=== PATIENT | female | born 1950 | race Caucasian/White ===

== ENCOUNTER 2025-08-28 09:01 | Outpatient (REF) | payer MEDICARE, SELFPAY ==
--- NOTE | ~2025-08-28 | XR_ITS ---
EXAMINATION: XR CHEST CLINICAL INFORMATION: R05.9 - Cough, unspecified COMPARISON: None available. TECHNIQUE: 2 views of the chest were obtained. FINDINGS: Rotated positioning. Cardiac and mediastinal silhouette is within normal limits. Low lung volumes. Hazy and streaky opacities in the right mid and lower lung. Hazy opacity in the left lung base. No significant effusion. No pneumothorax is seen. Thoracolumbar spondylosis XR/XR chest 2V IMPRESSION: Hazy and streaky opacities in the right mid and lower lung, and in the left lung base. This could reflect inflammatory/infectious process. Electronically signed by: Sukhdev Randle MD 08/28/2025 10:38 AM KARIME
[2025-08-28 11:00] LABS: Resp Syncy Virus RNA Qual PCR NEGATIVE (Negative); SARS COV2 PCR INHOUSE NEGATIVE (Negative)
== END 2025-08-28 09:02 | disposition home or self-care (01) ==
LOC: HO.HMGCX 09:01
PROVIDERS: PCP Internal Medicine; Visit Provider Physician Assistant Medical
DX: R05.1 Acute cough (principal); R09.89 Other specified symptoms and signs involving the circulatory and respiratory systems
CPT/HCPCS: 71046; 87637; 99202

== ENCOUNTER 2025-08-28 09:01 | Outpatient (AMB) | payer MEDICARE, SELFPAY ==
--- NOTE | 2025-08-28 09:06 | AM.OFFWIN_ITS ---
Intake Vital Signs 08/28/25 09:12 Height 5 ft 1 in Weight 128 lb BMI 24.2 BP 124/66 Blood Pressure Location Rt brachial Position Sitting Pulse 78 Pulse Source Pulse Oximeter Temp 99.2 F Temp Source Oral Pulse Oximetry (%) 95 Oxygen Delivery Method Room Air Intake Visit Reasons: COURT ORDERLY-headaches, sinus & chest congestion, chills Intake Note: pt presents with body aches/chills, headaches, chest congestion with productive coughing yellow phlegm, sinus congestion x10 days Allergies codeine (CODEINE) Allergy (Mild, Unverified 08/28/25 09:12) ITCHING Do you need a note to return to daycare/school/sports/work: No HPI HPI Comments History of Present Illness Details History - The patient is a 75-year-old female pr esenting with symptoms of an upper respiratory infection. - Symptoms began 10 days ago, with persi stent nasal and sinus congestion and fluid in the chest. - She reports a persistent cough with ye llow sputum, occurring day and night, and a low-grade fever of 99.2?F. - Additional symptoms include headache, chills, exhaustion, and occasional shortness of breath. - She denies significant chest pain, sor e throat, or gastrointestinal symptoms. - History of infrequent sinus infections , no asthma, and has received COVID-19 vaccinations. - Current treatment includes Mucinex and cough drops, with no symptom relief. - She has no sick contacts, travel or sm oking. Physical Exam General: Cooperative, healthy appearing, comfortable and no acute distress Orientation/consciousness: Patient oriented x3 Limitations: No limitations Head: Normal to inspection Ears: Hearing grossly normal bilaterally, external ears normal and TM's normal bilaterally Nose: Normal external nose present, normal nares present, and no nasal discharge present. Face and sinus: Sinuses nontender to palpation Mouth: Normal oral and palatal mucosa present and moist mucous membranes noted. Throat: Tonsils normal. Uvula is midline. Posterior oropharynx with erythema and no exudates. Eyes: Appearance normal, both eyes and all related structures Neck: Normal visual inspection, full ROM. No lymphadenopathy noted. Respiratory: Wheezes noted. Normal respiratory effort, able to speak in complete sentences. No respiratory distress, not tachypneic, no tripod positioning and no use of accessory muscles. Cardiovascular: Regular rate and rhythm. Normal S1 and S2 Skin: No rashes or lesions noted Patient was informed and verbally consented to the use of an ambient scribe for clinic note documentation during this visit Review of Systems Const All systems reviewed & are unremarkable except as noted in HPI and below Physical Exam Vital Signs: Last Vital Signs Temp 99.2 F 08/28/25 09:12 Pulse 78 08/28/25 09:12 BP 124/66 08/28/25 09:12 Pulse Ox 95 08/28/25 09:12 Oxygen Delivery Method Room Air 08/28/25 09:12 BMI result Body Mass Index 24.2 Results Reviewed Results Reviewed: will review the CXR in the office Assessment & Plan Assessment & Plan (1) Cough: Code(s): R05.9 - Cough, unspecified Qualifiers: Cough type: acute Qualified Code(s): R05.1 - Acute cough Plan Most likely URI vs covid vs flu vs RSV vs pneumonia plan - Plan includes a viral swab to rule out viral illness. - A chest x-ray is ordered to exclude pneumonia. - Medications will be sent to the pharmacy for symptomatic relief. - tylenol or motrin as needed - will call her with the results - follow up as needed with PCP Orders: Orders SARS-CoV2/FLU/RSV Today R09.89 - Other specified symptoms and signs involving the circulatory and respiratory systems XR chest 2V Today R05.9 - Cough, unspecified Medications: New cetirizine-pseudoephedrine 5-120 mg ER 1 tab PO BID 14 tabs 0RF 7 days fluticasone propionate 50 mcg/actuation administer into each nostril 1 spray intranasal Q12H 16 grams 0RF benzonatate 100 mg PO bid-tid PRN 21 caps 0RF Cough 7 days Coding Level of Care Code New Pt Level 4 (67018) Diagnoses Acute cough R05.1 Cough type: acute
[2025-08-28 09:12] VITALS: BP 124/66; PULSE 78; TEMP 37.3; O2SAT 95; BMI 24.2
--- OUTSIDE RECORDS SUMMARY | 2025-08-28 09:38 | XMS_ITS | Patient Health Record ---
Author Organization [facility] Address [address] [place] [address] Care Team Providers Care Vending Mechanic Name Role Phone Josh FLOOD, Justin Primary Care Provider Alexander tyson Elicia Maldonado Unavailable [phone] Allergies Allergen (clinical drug ingredient) Drug/Non Drug Allergy documented on EMR Reaction Allergy Type Onset Date Status codeine Codeine itchy Drug Allergy Active Reason For Referral No Information Medications Medication SIG (Take, Route, Fr equency, Duration) Notes Start Date End Date Status Omeprazole 20 MG 1 capsule Orally Once a day Active Fish Oil Active Calcium + D Active Problems Problem Type SNOMED Code ICD Code Onset Dates Problem Status W/U Status Risk Notes Problem Pain in limb (93766210) Pain in Limb (729.5) Active confirmed Problem Neuralgia - Neuritis (729.2) Active confirmed Problem Metatarsalgia (62167453) Metatarsalgia (726.70) Active confirmed Problem Metatarsalgia (finding) (44253841) Plantarflexed Metatarsal (838.04) Active confirmed Plan Of Treatment Pending Test Test Name Order Date 22647, [id number] Neuroma/Injection 09/28/20 14 Insurance Providers Payer Name Payer Address Payer Phone Subscriber Number Group Number Insured Name Patient Relationship to Insured Coverage Start Date Coverage End Date [facility] [id number] [place] [address] [phone] [id number] Melody Rizzo Self - patient is the insured Medical (General) History Medical History History ICD Code Anxiety Arthritis Back,Hip,and Knee pain Hypercholesterolemia Chicken pox Measles Mumps Reflux
== END 2025-08-28 10:07 | disposition home or self-care (01) ==
PROVIDERS: PCP Internal Medicine; Visit Provider Physician Assistant Medical
DX: R05.1 Acute cough (principal)

== ENCOUNTER → 2025-08-28 09:34 | Outpatient (BNV) | payer MEDICARE, SELFPAY | PROVIDERS: PCP Internal Medicine; Visit Provider Radiology Diagnostic Ultrasound | DX: R91.8 Other nonspecific abnormal finding of lung field (principal) | CPT/HCPCS: 71046 ==